=== PATIENT | male | born 1970 | race Caucasian/White ===

== ENCOUNTER 2017-11-17 00:29 | Emergency (ER) | payer OTHER ==
[~2017-11-17] VITALS: Ht 188 cm; Wt 105.2 kg
[2017-11-17 00:39] VITALS: Ht 188 cm; Wt 105.2 kg
[2017-11-17 02:50] LABS: AMPHETAMINE QUAL UR NONE DETECTED (See below)
[2017-11-17 02:58] LABS: CALCIUM 8.7 mg/dL (8.5-10.1); CARBON DIOXIDE 21.8 mmol/L (21-32); CHLORIDE SERUM 102 mmol/L (98-107); CREATININE SERUM 0.9 mg/dL (0.7-1.3); GFR1 > 60 mL/min; GLUCOSE SERUM 97 mg/dL (74-106); POTASSIUM SERUM 3.4 mmol/L (3.5-5.1); SODIUM SERUM 140 mmol/L (136-145)
[2017-11-17 03:11] LABS: ALBUMIN 3.8 g/dL (3.4-5.0); ALKALINE PHOSPHATASE 77 U/L (46-116); ALT/SGPT 14 U/L (16-63); AST/SGOT 13 U/L (15-37); BILIRUBIN TOTAL 0.56 mg/dL (0.20-1.00); TOTAL PROTEIN, SERUM 6.9 g/dL (6.4-8.2)
[2017-11-17 03:38] LABS: BASOPHIL % 0.3 % (0-2); PLATELET COUNT 265 x10^3mcL (130-400); RED CELL DISTRIBUTION WIDTH 14.1 % (11.5-14.5)
[2017-11-17 07:42] VITALS: BP 132/71
== END 2017-11-17 07:42 | disposition home or self-care (01) ==
LOC: ED 00:29
PROVIDERS: Emergency Medicine
DX: F32.9 Major depressive disorder, single episode, unspecified (principal); F10.94 Alcohol use, unspecified with alcohol-induced mood disorder; I10 Essential (primary) hypertension
CPT/HCPCS: 36415; 84439; G0480

== ENCOUNTER 2017-12-08 00:21 | Emergency (ER) | payer OTHER ==
[~2017-12-08] VITALS: Ht 188 cm; Wt 99.8 kg
[2017-12-08 00:33] VITALS: Ht 188 cm; Wt 99.8 kg
[2017-12-08 02:58] LABS: CALCIUM 8.4 mg/dL (8.5-10.1); CARBON DIOXIDE 23.9 mmol/L (21-32); CHLORIDE SERUM 103 mmol/L (98-107); CREATININE SERUM 0.8 mg/dL (0.7-1.3); GFR1 > 60 mL/min; GLUCOSE SERUM 97 mg/dL (74-106); POTASSIUM SERUM 3.7 mmol/L (3.5-5.1); SODIUM SERUM 141 mmol/L (136-145)
[2017-12-08 03:03] LABS: ALKALINE PHOSPHATASE 81 U/L (46-116); ALT/SGPT 16 U/L (16-63); AST/SGOT 12 U/L (15-37); BASOPHIL % 0.5 % (0-2); BILIRUBIN TOTAL 0.4 mg/dL (0.20-1.00); PLATELET COUNT 274 x10^3mcL (130-400); RED CELL DISTRIBUTION WIDTH 12.9 % (11.5-14.5); TOTAL PROTEIN, SERUM 7.2 g/dL (6.4-8.2)
[2017-12-08 03:24] LABS: AMPHETAMINE QUAL UR NONE DETECTED (See below)
[2017-12-08 04:22] VITALS: BP 116/73
== END 2017-12-08 04:23 | disposition home or self-care (01) ==
LOC: ED 00:21
PROVIDERS: Emergency Medicine Emergency Medical Services
DX: F32.9 Major depressive disorder, single episode, unspecified (principal); R45.851 Suicidal ideations; F10.129 Alcohol abuse with intoxication, unspecified; I10 Essential (primary) hypertension; K21.9 Gastro-esophageal reflux disease without esophagitis
CPT/HCPCS: 36415; G0480